=== PATIENT | female | born 1950 | race Caucasian/White ===

== ENCOUNTER 2023-06-02 08:50 | Outpatient (RCR) | payer MEDICARE, OTHER, SELFPAY | END 2023-06-02 23:59 | disposition home or self-care (01) | LOC: RPT 08:50 | PROVIDERS: ATTENDING PHYSICIAN Radiology Radiation Oncology; FAMILY PHYSICIAN Internal Medicine | DX: C50.511 Malignant neoplasm of lower-outer quadrant of right female breast (principal); Z17.0 Estrogen receptor positive status [ER+]; Z98.890 Other specified postprocedural states | CPT/HCPCS: 97110; 97162; 97535 ==

== ENCOUNTER → 2024-03-02 11:53 | Outpatient (REF) | payer MEDICARE, OTHER, SELFPAY | LOC: WDC 11:53 | PROVIDERS: ATTENDING PHYSICIAN Family Medicine Geriatric Medicine; FAMILY PHYSICIAN Family Medicine | DX: Z12.31 Encounter for screening mammogram for malignant neoplasm of breast (principal); C50.511 Malignant neoplasm of lower-outer quadrant of right female breast; Z85.3 Personal history of malignant neoplasm of breast | CPT/HCPCS: 77063; 77067 ==

== ENCOUNTER → 2024-03-18 13:40 | Outpatient (REF) | payer MEDICARE, OTHER, SELFPAY | LOC: RAD 13:40 | PROVIDERS: ATTENDING PHYSICIAN Internal Medicine; FAMILY PHYSICIAN Family Medicine; REFERRING PHYSICIAN Internal Medicine Hematology & Oncology | DX: M85.89 Other specified disorders of bone density and structure, multiple sites (principal) | CPT/HCPCS: 77080 ==

== ENCOUNTER → 2025-03-08 11:20 | Outpatient (REF) | payer MEDICARE, OTHER, SELFPAY | LOC: WDC 11:20 | PROVIDERS: ATTENDING PHYSICIAN Obstetrics & Gynecology; FAMILY PHYSICIAN Family Medicine | DX: Z12.31 Encounter for screening mammogram for malignant neoplasm of breast (principal) | CPT/HCPCS: 77063; 77067 ==